=== PATIENT | female | born 1990 | race Two or more races ===

== ENCOUNTER 2018-04-28 19:33 | Emergency (ER) | payer OTHER ==
[~2018-04-28] VITALS: Ht 160 cm; Wt 69.4 kg
[2018-04-28] MEDS ORDERED: PREDNISOLONE SO10 MG (19:44)
[2018-04-28] MEDS ORDERED: ZYRTEC10 M3 (19:44)
== END 2018-04-28 20:22 | disposition home or self-care (01) ==
LOC: ER 19:33
DX: M94.0 Chondrocostal junction syndrome [Tietze] (principal)

== ENCOUNTER 2018-07-04 11:22 | Outpatient (CLI) | payer OTHER ==
[~2018-07-04 11:22] MED LIST: PREDNISOLONE SO10 MG; ZYRTEC10 M3
== END 2018-07-04 13:55 | disposition home or self-care (01) ==
LOC: NST 11:22
DX: Z34.02 Encounter for supervision of normal first pregnancy, second trimester (principal)

== ENCOUNTER 2018-08-16 06:53 | Inpatient (IN) | payer OTHER ==
[~2018-08-16] VITALS: Ht 160 cm; Wt 77.6 kg
== END 2018-08-18 10:11 | DRG 781 ==
LOC: OB/GYN 06:53
PROC: 4A1HXCZ Monitoring of Products of Conception, Cardiac Rate, External Approach (ICD-10-PCS; principal; 2018-08-16)
DX: O24.813 Other pre-existing diabetes mellitus in pregnancy, third trimester (principal)
CPT/HCPCS: 240

== ENCOUNTER 2018-08-29 14:53 | Outpatient (CLI) | payer OTHER | END 2018-08-29 21:02 | disposition home or self-care (01) | LOC: NST 14:53 | DX: O24.913 Unspecified diabetes mellitus in pregnancy, third trimester (principal); Z34.03 Encounter for supervision of normal first pregnancy, third trimester ==

== ENCOUNTER 2018-09-14 13:55 | Outpatient (CLI) | payer OTHER | END 2018-09-14 16:00 | disposition home or self-care (01) | LOC: NST 13:55 | DX: Z34.03 Encounter for supervision of normal first pregnancy, third trimester (principal) ==

== ENCOUNTER → 2018-09-22 | Outpatient (CLI) | payer OTHER ==
[~2018-09-22] MED LIST changes: +FOLIC ACID0.4 MG PO; +PREDNISONE5 MG/5 ML PO; +PRENATAL 19 TA1 EAC1 PO; +TYLENOL ARTHRI650 MG PO
== END | disposition home or self-care (01) ==
LOC: NST 15:49
DX: Z34.83 Encounter for supervision of other normal pregnancy, third trimester (principal)

== ENCOUNTER 2018-09-26 13:53 | Inpatient (IN) | payer OTHER ==
[~2018-09-26] VITALS: Ht 160 cm; Wt 83.5 kg
[~2018-09-26 13:53] MED LIST changes: -FOLIC ACID0.4 MG PO; -PREDNISONE5 MG/5 ML PO; -PRENATAL 19 TA1 EAC1 PO; -TYLENOL ARTHRI650 MG PO
[2018-09-26] MEDS ORDERED: PREDNISONE5 MG/5 ML PO (22:17)
[2018-09-26] MEDS ORDERED: FOLIC ACID0.4 MG PO (22:19)
[2018-09-26] MEDS ORDERED: TYLENOL ARTHRI650 MG PO (22:19)
[2018-09-26] MEDS ORDERED: PRENATAL 19 TA1 EAC1 PO (22:20)
== END 2018-09-30 15:13 | disposition home or self-care (01) | DRG 788 ==
LOC: OB/GYN 13:53
PROVIDERS: Obstetrics & Gynecology
PROC: 3E0P7VZ Introduction of Hormone into Female Reproductive, Via Natural or Artificial Opening (ICD-10-PCS; 2018-09-27)
PROC: 3E033VJ Introduction of Other Hormone into Peripheral Vein, Percutaneous Approach (ICD-10-PCS; 2018-09-27)
PROC: 4A1HXCZ Monitoring of Products of Conception, Cardiac Rate, External Approach (ICD-10-PCS; 2018-09-27)
PROC: 10D00Z1 Extraction of Products of Conception, Low, Open Approach (ICD-10-PCS; principal; 2018-09-27 17:00)
DX: O61.0 Failed medical induction of labor (principal); O65.4 Obstructed labor due to fetopelvic disproportion, unspecified; Z3A.37 37 weeks gestation of pregnancy; Z37.0 Single live birth

== ENCOUNTER 2018-12-06 10:25 | Emergency (ER) | payer OTHER ==
[~2018-12-06] VITALS: Ht 160 cm; Wt 72.6 kg
[~2018-12-06 10:25] MED LIST changes: +FOLIC ACID0.4 MG PO; +PREDNISONE5 MG/5 ML PO; +PRENATAL 19 TA1 EAC1 PO; +TYLENOL ARTHRI650 MG PO
== END 2018-12-06 16:06 | disposition home or self-care (01) ==
LOC: ER 10:25
DX: K52.9 Noninfective gastroenteritis and colitis, unspecified (principal); E86.0 Dehydration